=== PATIENT | male | born 2000 | race Caucasian/White ===

== ENCOUNTER 2021-09-07 18:02 | Outpatient (CLI) | payer OTHER, SELFPAY ==
[2021-09-07 19:11] LABS: Influenza A QL RT-PCR Negative (Negative); Influenza B QL RT-PCR Negative (Negative); SARS-CoV-2 RNA PCR Negative (Negative)
== END 2021-09-07 18:03 | disposition home or self-care (01) ==
LOC: CHSLAB 18:06
PROVIDERS: PCP Internal Medicine; Visit Provider Internal Medicine
DX: J06.9 Acute upper respiratory infection, unspecified (principal); Z20.822 Contact with and (suspected) exposure to COVID-19
CPT/HCPCS: 87502; C9803; U0003; U0005

== ENCOUNTER 2022-02-15 18:30 | Emergency (ER) | payer OTHER, SELFPAY ==
[2022-02-15 19:00] VITALS: BP 153/70; PULSE 90; RESP 24; O2SAT 100
--- NOTE | 2022-02-15 19:08 | ED.ANXIETY ---
HPI - Anxiety General Chief Complaint: Cardiac Arrest/CPR Stated Complaint: chest pain Time Seen by Provider: 02/15/22 19:10 Source: patient and RN notes reviewed Mode of arrival: ambulatory Limitations: no limitations History of Present Illness HPI narrative: patient states that he is having chest pressure for the last 2 hours intermittently 5/10. No diaphoresis no nausea vomiting no radiation no dyspnea. He got into the room having absolutely no chest pain and then after the nurse left the room he began having chest pain again and feeling numb and tingly all over. Said the pain goes down all over his entire body. complaint: anxiety and heart racing Onset (ago): hour(s) (2) Symptoms: chest pain, palpitations and extremity numbness/tingling Severity: moderate Quality: intermittent and improving (gone now) Place: home Provoking factors: none known Relieving factors: nothing Exacerbating factors: nothing Associated symptoms: chest pain and palpitations Related Data Allergies Allergy/AdvReac Type Severity Reaction Status Date / Time amoxicillin Allergy Mild Unknown Verified 02/15/22 20:34 Review of Systems Review of Systems: All systems reviewed & are unremarkable except as noted in HPI and below Constitutional: Constitutional: Denies chills and Denies fever(s) ENT: Denies dizziness Respiratory: Respiratory: Denies dyspnea Gastrointestinal: Gastrointestinal: Denies nausea and Denies vomiting PMFSH Social History Social History (Updated 02/16/22 @ 06:55 by Akil Starks MD) Smoking status: Never smoker Exam Const: General: healthy appearing, no acute distress and alert; No diaphoretic Nutritional Appearance: well nourished Orientation/consciousness: patient oriented x3 Limitations: no limitations HENMT: Head: normal to inspection Ears: external ears normal General nose exam: Normal external nose present Face and sinus: normal facial exam Mouth: Yes moist mucous membranes Eyes: Conjunctivae: conjunctivae normal Pupils: Equal, round and reactive pupils present EOM: EOMs intact bilaterally Neck: Neck: normal visual inspection Resp: Effort & Inspection: normal respiratory effort Auscultation: clear to auscultation bilaterally Cardio: Rate: regular rate Rhythm: regular rhythm Heart sounds: no murmurs GI: GI Palp: Yes Soft to palpation and No Tenderness to palpation present (GI) Auscultation: normal bowel sounds Back/Spine/Pelvis: Cervical Spine: cervical ROM normal Thoracic/Lumbar Spine: thoraco-lumbar ROM normal Skin: General skin exam: normal color Rashes: no rashes Neuro: General: patient oriented x3, moves all extremities, no focal motor deficits and CN's II-XI intact bilaterally Speech: normal speech Gait exam (Neuro): Normal gait present Extrem: General: normal to inspection and no clubbing, cyanosis or edema Psych: Mental Status: mental status grossly normal Affect: normal affect Attitude: cooperative Course Vital Signs Vital signs: Vital Signs Pulse Rate 90 02/15/22 19:00 Respiratory Rate 24 H 02/15/22 19:00 Blood Pressure 153/70 H 02/15/22 19:00 Pulse Oximetry 100 02/15/22 19:00 Oxygen Delivery Room Air 02/15/22 19:00 Pulse Rate 81 02/15/22 20:55 Respiratory Rate 16 02/15/22 20:55 Blood Pressure 112/80 02/15/22 20:55 Pulse Oximetry 97 02/15/22 20:55 Oxygen Delivery Room Air 02/15/22 20:55 MDM - Anxiety MDM Narrative Medical decision making narrative: I discussed results with mom who is a nurse. This could be some components of anxiety causing the palpitations or palpitations from the junctional rhythm. There is no evidence of any acute abnormality except for slightly decreased potassium which she will be on replacement for 10 days. He is encouraged to see a lobbyist for the junctional rhythm for further evaluation. Differential Diagnosis Differential diagnosis: Likely acute anxiety Lab Data Attestation: I reviewed the
--- NOTE | 2022-02-15 19:10 | ECG_ITS ---
Measurements Intervals [place] Rate: 97 P: -87 MN: 120 QRS: 59 QRSD: 114 T: 18 QT: 360 QTc: 458 Interpretive Statements NORMAL SINUS RHYTHM MODERATE INTRAVENTRICULAR CONDUCTION DELAY [110+ ms QRS DURATION] NO PRIOR TRACING Electronically Signed On 02-15-2022 22:08:39 CDT by Cynthia Puri M.D.
[2022-02-15 19:42] LABS: Basophils Absolute Auto 0.07 K/mm3 (0.00-0.10); Basophils Percent Auto 1.3 % (0.0-1.0); Eosinophils Absolute Auto 0.27 K/mm3 (0.02-0.50); Eosinophils Percent Auto 4.8 % (1.0-6.0); Hematocrit 46.4 % (40.0-54.0); Hemoglobin 16.2 g/dL (14.0-18.0); Immature Granulocyte Absolute 0.03 K/mm3 (0.00-0.00); Immature Granulocyte Percent A 0.5 % (0.0-0.0); Lymphocytes Absolute Auto 1.61 K/mm3 (1.10-4.50); Lymphocytes Percent Auto 28.8 % (18.0-42.0); Mean Corpuscular HGB Conc 34.9 g/dL (32.0-36.0); Mean Corpuscular Hemoglobin 30.5 pg (27.0-31.0); Mean Corpuscular Volume 87.2 fL (78.0-102.0); Mean Platelet Volume 10.1 fl (8.7-11.0); Monocytes Absolute Auto 0.48 K/mm3 (0.10-0.90); Monocytes Percent Auto 8.6 % (2.0-11.0); Neutrophils Absolute Auto 3.1 K/mm3 (1.7-7.2); Platelet Count Result 275 K/mm3 (150-420); Red Blood Count 5.32 M/mm3 (4.70-6.10); Red Cell Distribution Width 12.4 % (11.6-14.4); White Blood Count 5.6 K/mm3 (4.8-10.8)
[2022-02-15 20:11] LABS: Amphetamine Screen Urine Negative (Negative); Barbiturate Screen Urine Negative (Negative); Benzodiazepines Screen Urine Negative (Negative); Cannabinoid Screen Urine Negative (Negative); Cocaine Screen Urine Negative (Negative); Methadone Screen Urine Negative (Negative); Opiate Screen Urine Negative (Negative); Phencyclidine Screen Urine Negative (Negative)
[2022-02-15 20:15] LABS: Alanine Aminotransferase 38 U/L (16-63); Albumin Level 4.4 g/dL (3.4-5.0); Alkaline Phosphatase 98 U/L (46-116); Anion Gap 12 mmol/L (8-16); Aspartate Amino Transferase 21 U/L (15-37); Bilirubin,Total 1.3 mg/dL (0.00-1.00); Blood Urea Nitrogen 17 mg/dL (7-18); Calcium 9.7 mg/dL (8.5-10.1); Carbon Dioxide 22 mmol/L (21-32); Chloride 103 mmol/L (98-108); Estimated Glomerular Filt Rate > 60; Glucose 104 mg/dL (70-99); Osmolality Calculated 285 mOsm/kg (285-295); Potassium 3.4 mmol/L (3.5-5.1); Sodium 137 mmol/L (136-145)
[2022-02-15 20:16] LABS: Magnesium 2.1 mg/dL (1.8-2.4)
[2022-02-15 20:16] LABS: Thyroid Stimulating Hormone 3.19 uIU/mL (0.36-3.74); Troponin I 4.9 ng/L (0.00-60.4)
[2022-02-15 20:55] VITALS: BP 112/80; PULSE 81; RESP 16; O2SAT 97
== END 2022-02-15 20:50 | disposition home or self-care (01) ==
PROVIDERS: Emergency Provider Emergency Medicine; PCP Internal Medicine
DX: I49.9 Cardiac arrhythmia, unspecified (principal); E87.6 Hypokalemia
CPT/HCPCS: 36415; 80053; 80307; 83735; 84443; 84484; 85025; 93005; 99284

== ENCOUNTER 2022-02-17 06:05 | Emergency (ER) | payer OTHER, SELFPAY ==
[2022-02-17] VITALS (33 sets, daily range): BP systolic 126–174; BP diastolic 60–92; PULSE 60–128; RESP 8–28; TEMP 36.7; O2SAT 97–100
--- NOTE | ~2022-02-17 | CT_ITS ---
EXAMINATION: CTA chest PE protocol DATE: 02/17/2022 08:13 INDICATION: Shortness of breath. Chest pain. TECHNIQUE: Computed tomography angiography (CTA) of the chest was performed with 100 mL Omnipaque-350 intravenous contrast timed to evaluate the pulmonary arteries. Coronal maximum intensity projection 3D-reconstructions were created by the technologist. Automated exposure control and iterative reconst ruction technique were employed. The dose-length product was 509.54 mGy-cm. COMPARISON: None. FINDINGS: There is mild atelectasis in left lower lobe. There is a 4 mm nodule left lower lobe, likel y benign. No pleural effusion. The heart size is normal. No pericardial effusion. There are gallstone s in the gallbladder, which is normal in size. There is no pulmonary embolus. The bones are unremarka ble. IMPRESSION: 1. No pulmonary embolus. 2. Cholelithiasis. No evidence of acute cholecystitis. Reviewed, dictated and finalized at location A.
--- NOTE | ~2022-02-17 | XR_ITS ---
EXAMINATION: XR chest 1V portable DATE: 02/17/2022 06:42 INDICATION: Chest pain. TECHNIQUE: A single frontal view of the chest was obtained on 2 radiographs. COMPARISON: None. FINDINGS: The chest demonstrates clear lungs without pneumonia, pleural effusion, or pneumothorax. Th e heart size is normal. IMPRESSION: 1. No acute cardiopulmonary disease. Reviewed, dictated and finalized at location A.
--- NOTE | 2022-02-17 06:09 | ECG_ITS ---
Measurements Intervals [place] Rate: 97 P: -84 CO: 96 QRS: 62 QRSD: 114 T: 42 QT: 362 QTc: 461 Interpretive Statements SINUS RHYTHM WITH OCCASIONAL VENTRICULAR PREMATURE COMPLEXES INCOMPLETE RIGHT BUNDLE BRANCH BLOCK [90+ ms QRS DURATION, TERMINAL R IN V1/V2, 40+ ms S IN I/aVL/V4/V5/V6] ABNORMAL RHYTHM ECG COMPARED TO ECG 02/15/2022 19:20:57 NO SIGNIFICANT DIFFERENCE Electronically Signed On 02-17-2022 14:24:16 CDT by Rogelio Melgar M.D.
--- NOTE | 2022-02-17 06:16 | ED.CHESTPAIN ---
HPI - Chest Pain General Chief Complaint: Chest Pain Stated Complaint: chest pain, SOB Time Seen by Provider: 02/17/22 06:16 Source: patient and family Mode of arrival: ambulatory History of Present Illness HPI narrative: 21 old male presents to the ER with a 1.5 hour history acute onset -- anterior chest pain. Pain woke him from sleep. No radiation of the pain. No nausea/ vomiting. -- shortness of breath -- numbness and tingling of his nallely oral region and his fingertips. He days similar symptoms and noted hypokalemia and junctional rhythm. Patient was diagnosed anxiety discharged home. The patient followed up with his primary care physician ordered a workup for Phaechromocytoma and is in the process of getting a 24 hour urine. MD complaint: chest pain Onset (ago): minute(s) ( started 90 minutes ago) Timing of current episode: constant Prior episodes: Yes Onset: during rest Pain location: substernal Pain radiation: none Severity: moderate Quality: aching Relieving factors: nothing Exacerbating factors: nothing Treatment prior to arrival: none Risk Factors Coronary artery disease risk factors: none Thoracic aortic dissection risk factors: none Related Data Home Medications Medication Instructions Recorded Confirmed escitalopram oxalate 10 mg tablet 10 mg PO DAILY 02/17/22 02/17/22 (Lexapro) Allergies Allergy/AdvReac Type Severity Reaction Status Date / Time amoxicillin Allergy Mild Unknown Verified 02/15/22 20:34 Review of Systems Review of Systems: All systems reviewed & are unremarkable except as noted in HPI and below Constitutional: Constitutional: Reports as per HPI and Reports no additional constitutional complaints Eyes: Eyes: Reports as per HPI and Reports no additional eye complaints ENT: Reports system reviewed and no additional complaints, except as documented Cardiovascular: Cardiovascular: Reports as per HPI and Reports no additional cardiovascular complaints Respiratory: Respiratory: Reports as per HPI and Reports no additional respiratory complaints Gastrointestinal: Gastrointestinal: Reports as per HPI and Reports no additional gastrointestinal complaints Genitourinary: Genitourinary: Reports no additional male genitourinary complaints and Reports as per HPI Musculoskeletal: Musculoskeletal: Reports no additional musculoskeletal complaints and Reports as per HPI Integumentary/Breasts: Skin/Breast: Reports system reviewed and no additional complaints, except as docu and Reports as per HPI Neurologic: Reports system reviewed and no additional complaints, except as documented and Reports as per HPI Psychiatric: Psychiatric: Reports no additional psychiatric complaints and Reports as per HPI Endocrine: Endocrine: Reports no additional endocrine complaints and Reports as per HPI Hematologic/Lymphatic: Hematologic/Lymphatic: Reports no additional hematologic/lymphatic complaints and Reports as per HPI Allergic/Immunologic: Allergic/Immunologic: Reports no additional allergic/immunologic complaints and Reports as per HPI [facility] Family History Family History (Updated 02/17/22 @ 06:52 by Deondre Hurt MD) Father Family history of PSVT Other Trupti-Danlos disease Social History Social History Smoking status: Never smoker Exam Const: General: healthy appearing and no acute distress Orientation/consciousness: patient oriented x3 Limitations: no limitations Other: hypertensive on presentation with a blood pressure of 174/92 which has decreased to 146/83 HENMT: Head: normal to inspection Ears: external ears normal General nose exam: Normal external nose present Eyes: Conjunctivae: conjunctivae normal Pupils: Equal, round and reactive pupils present Direct Ophthalmoscopy: no photophobia Neck: Neck: normal visual inspection Chest: Chest palpation & inspection: normal inspection of the chest R
[2022-02-17 06:44] LABS: Basophils Absolute Auto 0.11 K/mm3 (0.00-0.10); Basophils Percent Auto 1.5 % (0.0-1.0); Eosinophils Absolute Auto 0.27 K/mm3 (0.02-0.50); Eosinophils Percent Auto 3.8 % (1.0-6.0); Hemoglobin 15.3 g/dL (14.0-18.0); Immature Granulocyte Absolute 0.02 K/mm3 (0.00-0.00); Immature Granulocyte Percent A 0.3 % (0.0-0.0); Lymphocytes Absolute Auto 2.29 K/mm3 (1.10-4.50); Lymphocytes Percent Auto 31.8 % (18.0-42.0); Mean Corpuscular HGB Conc 35.6 g/dL (32.0-36.0); Mean Corpuscular Volume 87.2 fL (78.0-102.0); Monocytes Absolute Auto 0.58 K/mm3 (0.10-0.90); Monocytes Percent Auto 8.1 % (2.0-11.0); Neutrophils Absolute Auto 3.9 K/mm3 (1.7-7.2); Neutrophils Percent Auto 54.5 % (50.0-70.0); Platelet Count Result 265 K/mm3 (150-420); Red Blood Count 4.93 M/mm3 (4.70-6.10); Red Cell Distribution Width 12.3 % (11.6-14.4); White Blood Count 7.2 K/mm3 (4.8-10.8)
[2022-02-17 06:55] LABS: Partial Thromboplastin Time 26.7 SEC (23.90-30.70); Prothrombin Time 10.5 Seconds (9.50-12.10)
[2022-02-17 06:59] LABS: Lactic Acid Reflex 3.5 mmol/L (0.4-2.0)
[2022-02-17 07:08] LABS: Alanine Aminotransferase 25 U/L (16-63); Albumin Level 4.2 g/dL (3.4-5.0); Alkaline Phosphatase 96 U/L (46-116); Anion Gap 17 mmol/L (8-16); Aspartate Amino Transferase 14 U/L (15-37); Blood Urea Nitrogen 17 mg/dL (7-18); Calcium 9.5 mg/dL (8.5-10.1); Carbon Dioxide 19 mmol/L (21-32); Chloride 103 mmol/L (98-108); Estimated CRCL calculation 101 ml/min; Estimated Glomerular Filt Rate > 60; Glucose 110 mg/dL (70-99); Magnesium 1.9 mg/dL (1.8-2.4); NT Pro B Type Natriuretic Pept 16 pg/mL (0-125); Osmolality Calculated 290 mOsm/kg (285-295); Potassium 2.9 mmol/L (3.5-5.1); Sodium 139 mmol/L (136-145); Thyroid Stimulating Hormone 2.23 uIU/mL (0.36-3.74); Total Protein 7.7 g/dL (6.4-8.2); Troponin I 4.4 ng/L (0.00-60.4)
[2022-02-17 07:17] LABS: D Dimer 0.66 mg/L (0.19-0.50)
--- NOTE | 2022-02-17 07:27 | PC.NURSE ---
0726 urine taken to lab
--- NOTE | 2022-02-17 07:32 | ED.GENADULT ---
HPI - General Adult General Chief complaint: Chest Pain Stated complaint: chest pain, SOB Time Seen by Provider: 02/17/22 06:16 Source: patient and family Mode of arrival: ambulatory History of Present Illness HPI narrative: I assumed care for Steve at [address] Hurt. Please see his note for further details. Further history revealed that this started after he drank a C4 energy drink on an empty stomach after being awake for 4 hours. Related Data Home Medications Medication Instructions Recorded Confirmed escitalopram oxalate 10 mg tablet 10 mg PO DAILY 02/17/22 02/17/22 (Lexapro) Allergies Allergy/AdvReac Type Severity Reaction Status Date / Time amoxicillin Allergy Mild Unknown Verified 02/17/22 07:28 Review of Systems Review of Systems: Negative except as mentioned in the HPI and Dr. Valdez note. [facility] Family History Family History (Updated 02/17/22 @ 06:52 by Deondre Hurt MD) Father Family history of PSVT Other Trupti-Danlos disease Social History Social History Smoking status: Never smoker Exam Const: General: healthy appearing, no acute distress and alert; No confusion Nutritional Appearance: well nourished and thin HENMT: Head: normal to inspection Ears: external ears normal General nose exam: Normal external nose present Face and sinus: normal facial exam Eyes: Conjunctivae: conjunctivae normal Pupils: Equal, round and reactive pupils present Chest: Chest palpation & inspection: normal inspection of the chest Other: No TTP Resp: Effort & Inspection: normal respiratory effort, not labored and no retractions Auscultation: clear to auscultation bilaterally Cardio: Rate: regular rate Rhythm: regular rhythm GI: Inspection: non-distended GI Palp: Yes Soft to palpation and No Tenderness to palpation present (GI) : General: Yes bladder normal to palpation Skin: General skin exam: normal color Neuro: General: patient oriented x3 and moves all extremities Extrem: General: normal to inspection Psych: Mental Status: mental status grossly normal Course Course Emergency Course: Shortly after assuming care Steve fell asleep and he desaturated into the 50's. Upon awakening his vitals returned to normal. After administration of ativan his symptoms drastically improved. EXAMINATION: CTA chest PE protocol DATE: 02/17/2022 08:13 INDICATION: Shortness of breath. Chest pain. TECHNIQUE: Computed tomography angiography (CTA) of the chest was performed with 100 mL Omnipaque-350 intravenous contrast timed to evaluate the pulmonary arteries. Coronal maximum intensity projection 3D-reconstructions were created by the technologist. Automated exposure control and iterative reconstruction technique were employed. The dose-length product was 509.54 mGy-cm. COMPARISON: None. FINDINGS: There is mild atelectasis in left lower lobe. There is a 4 mm nodule left lower lobe, likely benign. No pleural effusion. The heart size is normal. No pericardial effusion. There are gallstones in the gallbladder, which is normal in size. There is no pulmonary embolus. The bones are unremarkable. IMPRESSION: 1. No pulmonary embolus. 2. Cholelithiasis. No evidence of acute cholecystitis. After administration of potassium his EKG showed normal sinus rhythm with a rate of 66 and sinus arrhythmia but nos ST elevation, depression or ectopy He was asymptomatic at the time of discharge Vital Signs Vital signs: Vital Signs Temperature 98.1 F 02/17/22 06:05 Pulse Rate 98 02/17/22 06:05 Respiratory Rate 22 H 02/17/22 06:05 Blood Pressure 174/92 H 02/17/22 06:05 Pulse Oximetry 100 02/17/22 06:05 Oxygen Delivery Room Air 02/17/22 06:05 Temperature 98.1 F 02/17/22 06:05 Pulse Rate 69 02/17/22 10:01 Respiratory Rate 8 L 02/17/22 09:46 Blood Pressure 132/71 02/17/22 10:01 Pulse Oximetry 98
[2022-02-17 07:38] LABS: Amphetamine Screen Urine Negative (Negative); Barbiturate Screen Urine Negative (Negative); Benzodiazepines Screen Urine Negative (Negative); Cannabinoid Screen Urine Negative (Negative); Cocaine Screen Urine Negative (Negative); Methadone Screen Urine Negative (Negative); Opiate Screen Urine Negative (Negative); Phencyclidine Screen Urine Negative (Negative)
[2022-02-17 07:44] LABS: Add Urine Microscopic? NO; Appearance Urine Clear (Clear); Bilirubin Urine Negative (Negative); Blood Urine Negative (Negative); Color Urine Light Yellow (Yellow); Glucose Urine UA Negative (Negative); Ketones Urine Negative (Negative); Leukocyte Esterase Ur Negative (Negative); Nitrate Urine Negative (Negative); Protein Urine Negative (Negative); Specific Grav Ur 1.025 (1.010-1.020); Urobilinogen Urine 0.2 mg/dL (0.2-1.0); pH Urine 6.5 (5.0-8.0)
[2022-02-17] MEDS: LORazepam INJ (*CRX) 2 MG/ML VIAL 0.5 MG IV PUSH (07:45)
[2022-02-17] MEDS: SODIUM CHLORIDE 0.9% IV 1,000 ML 999 ML IV CONT (07:45)
[2022-02-17] MEDS: POTASSIUM CHLORIDE 20 MEQ TABLET 40 MEQ PO (07:46)
[2022-02-17] MEDS: KCL 20 MEQ/SW 100 ML 100 ML 50 MEQ IVPB (07:46)
--- NOTE | 2022-02-17 09:20 | ECG_ITS ---
Measurements Intervals [place] Rate: 66 P: 39 DE: 103 QRS: 60 QRSD: 109 T: 48 QT: 396 QTc: 418 Interpretive Statements SINUS RHYTHM WITH MARKED SINUS ARRHYTHMIA WITH SHORT DE INTERVAL EARLY REPOLARIZATION WITHIN NORMAL LIMITS COMPARED TO ECG 02/17/2022 06:15:53 SINUS ARRHYTHMIA NOW PRESENT Electronically Signed On 02-17-2022 14:25:12 CDT by Rogelio Melgar M.D.
[2022-02-17 09:40] LABS: Reflex Lactic Acid Yes or No Add Lactic
== END 2022-02-17 10:18 | disposition home or self-care (01) ==
PROVIDERS: Internal Medicine Critical Care Medicine; Emergency Provider Family Medicine; PCP Internal Medicine
DX: I47.1 Supraventricular tachycardia (principal); R07.9 Chest pain, unspecified; F41.9 Anxiety disorder, unspecified
CPT/HCPCS: 36415; 71045; 71275; 80053; 80307; 81003; 83605; 83735; 83880; 84443; 84484; 85025; 85380; 85610; 85730; 93005; 96365; 96366; 96375; 99285; A9270; J2060; J3480; J7030; Q9967

== ENCOUNTER 2022-02-17 18:39 | Outpatient (NON) | payer OTHER, SELFPAY ==
[2022-02-23 14:07] LABS: Metanephrine, Urine 176; Normetanephrine, Urine 366
[2022-02-23 14:08] LABS: Metanephrine, Total Urine 542
== END 2022-02-17 18:40 | disposition home or self-care (01) ==
LOC: CHSLAB 18:47
PROVIDERS: PCP Internal Medicine; Visit Provider Internal Medicine
DX: R23.2 Flushing (principal); I47.1 Supraventricular tachycardia
CPT/HCPCS: 83835

== ENCOUNTER 2022-02-20 12:26 | Outpatient (CLI) | payer OTHER, SELFPAY ==
--- NOTE | 2022-02-20 13:22 | ECHO_ITS ---
Patient Info Name: Steve Mcconnell Age: 21 years : 2000 Gender: Male Ht: 72 in Wt: 180 lbs BSA: 2.04 m2 HR: 89 bpm BP: 130 / 85 mmHg Technical Quality: Good Exam Date: 02/20/2022 12:32 PM Exam Location: [facility] Patient Status: Outpatient Admit Date: 02/20/2022 Staff Ordering Physician: Mick Castellanos MD Warehouse Operations Manager: Gerald Salazar RDCS, RT Attending Provider: Mick Castellanos MD Exam Type: CA echo doppler color flow Study Info Indications I47.9 - Paroxysmal tachycardia, unspecified Complete two-dimensional, color flow and Doppler transthoracic echocardiogram is performed. Strain analysis performed. Summary 1. Complete two-dimensional, color flow and Doppler transthoracic echocardiogram is performed. 2. Left ventricular chamber dimension is normal. 3. Left ventricular systolic function is normal, estimated at 60-65%. 4. The left ventricular diastolic function is grade I diastolic dysfunction. 5. E/e' 4 is not elevated. 6. Global longitudinal strain is normal at -17.2%. 7. There is trace tricuspid valve regurgitation. Left Ventricle E/e' 4 is not elevated. Global longitudinal strain is normal at -17.2%. Left ventricular chamber dimension is normal. Left ventricular systolic function is normal, estimated at 60-65%. The left ventricular diastolic function is grade I diastolic dysfunction. Right Ventricle Right ventricular systolic function is normal and with normal TAPSE 2.1 cm. Right ventricular chamber dimension is normal. Left Atria Left atrial chamber dimension is normal. Right Atria Right atrial chamber dimension is normal. Aortic Valve The aortic valve is trileaflet. There is no aortic valve stenosis. There is no aortic valve regurgitation. Pulmonic Valve There is no pulmonic regurgitation. Mitral Valve There is no mitral valve stenosis. There is no mitral valve regurgitation. Tricuspid Valve RVSP is not calculated due to an inadequate TR jet. There is trace tricuspid valve regurgitation. Pericardium/Pleural There is no pericardial effusion. Inferior Vena Cava Normal inferior vena cava with >50% collapse upon inspiration consistent with normal right atrial pressure, 5 mmHg. Aorta The aortic root size at the sinus of Valsalva is normal. Left Ventricular Outflow Tract Name Value Normal LVOT 2D LVOT Diameter 2.1 cm LVOT Doppler LVOT Peak Velocity 82 cm/s LVOT Peak Gradient 3 mmHg LVOT Mean Gradient 1 mmHg LVOT VTI 14 cm LVOT VTI/AV VTI Ratio 0.6 LVOT Stroke Volume 47 ml Mitral Valve Name Value Normal MV Doppler MV Decel [place] 322 cm/s2 MV PHT 55 ms MV Area (
--- NOTE | 2022-03-28 10:27 | WPDHOLTEREM ---
Holter/Event Monitor Holter/Event Monitor Date of procedure: 02/20/22 Holter/Event Procedure: Event Monitor Indications: Palpitations Conclusion: 1. 18 days event monitor between 02/20/22-03/25/22. There are 51 available transmissions for analysis. 2. Underlying rhythm is sinus rhythm. HR range 50-129; average HR 68 bpm. 3. There are occasional premature supraventricular complexes with total burden of <1%. No supraventricular tachycardia. 4. There are occasional premature ventricular complexes with total burden of <1%. No ventricular tachycardia. 5. No significant pauses greater than 2 seconds. 6. Patient reports symptoms of heart racing, chest pain, shortness of breath, and symptoms other than listed which demonstrate sinus rhythm, HR range 91-96 bpm with one PAC.
== END 2022-02-20 12:27 | disposition home or self-care (01) ==
LOC: CHSIMG 12:29
PROVIDERS: PCP Internal Medicine; Visit Provider Internal Medicine
DX: I47.1 Supraventricular tachycardia (principal)
CPT/HCPCS: 93306

== ENCOUNTER 2022-03-01 15:50 | Outpatient (CLI) | payer OTHER, SELFPAY ==
[2022-03-01 16:26] LABS: Alanine Aminotransferase 32 U/L (16-63); Albumin Level 4.1 g/dL (3.4-5.0); Alkaline Phosphatase 97 U/L (46-116); Anion Gap 5 mmol/L (8-16); Aspartate Amino Transferase 19 U/L (15-37); Bilirubin,Total 1.2 mg/dL (0.00-1.00); Blood Urea Nitrogen 16 mg/dL (7-18); Carbon Dioxide 30 mmol/L (21-32); Chloride 103 mmol/L (98-108); Estimated Glomerular Filt Rate > 60; Osmolality Calculated 287 mOsm/kg (285-295); Potassium 4.1 mmol/L (3.5-5.1); Sodium 138 mmol/L (136-145); Total Protein 7.1 g/dL (6.4-8.2)
[2022-03-01 16:44] LABS: Glucose 93 mg/dL (70-99)
== END 2022-03-01 15:51 | disposition home or self-care (01) ==
LOC: CHSLAB 15:53
PROVIDERS: PCP Internal Medicine; Visit Provider Internal Medicine
DX: E87.6 Hypokalemia (principal)
CPT/HCPCS: 36415; 80053; 83735

== ENCOUNTER 2025-01-02 20:19 | Emergency (ER) | payer OTHER, SELFPAY ==
--- NOTE | ~2025-01-02 | XR_ITS ---
XR hand LT min 3V Ordering provider: Jose Manuel Montesinos MD History: . CRUSHING INJURY TO LEFT HAND. PAIN DISTAL LEFT 3RD DIGIT. . Comparison: May 15, 2018 FINDINGS: BONES: Fracture of the midshaft of the distal phalanx of the left middle finger JOINT SPACES: Well maintained. SOFT TISSUES: Unremarkable. IMPRESSION: Fracture in the midshaft of the distal phalanx of the left middle finger. No displacement seen. Reviewed, dictated and finalized at location A. IMPRESSION: Fracture in the midshaft of the distal phalanx of the left middle finger. No di splacement seen.
[2025-01-02 20:20] VITALS: BP 138/96; PULSE 95; RESP 18; TEMP 36.4; O2SAT 97
--- NOTE | 2025-01-02 20:30 | ED_ITS ---
HPI - Extremity Injury (Upper) General Chief Complaint: Extremity Injury, Upper Stated Complaint: laceration Time Seen by Provider: 01/02/25 20:23 Source: patient Mode of arrival: ambulatory Limitations: no limitations History of Present Illness HPI narrative: patient is a 24-year-old male with a heavy object landing on his left middle finger prior to arrival. This is a crush injury. There was a nail avulsion from the base. Pain in the distal tip of the middle left finger. complaint: injury to: left, hand and finger ( Middle) Onset (ago): hour(s) ( 1) Other Extremity Injury: Left: fingers ( middle) Other injuries: none Place: outdoors Severity: moderate Severity scale (1-10): 5 Relieving factors: rest Exacerbating factors: movement of extremity Context: direct blow, crush and injury Associated symptoms: denies other symptoms Treatments prior to arrival: other ( none) Related Data Home Medications ?Medication ?Instructions ?Recorded ?Confirmed ?Last Taken ?Type escitalopram oxalate 10 mg tablet 10 mg PO DAILY 02/17/22 02/17/22 Unknown Hi story (Lexapro) Allergies Allergy/AdvReac Type Severity Reaction Status Date / Time amoxicillin Allergy Mild Unknown Verified 02/17/22 07:28 Review of Systems Review of Systems: All systems reviewed & are unremarkable except as noted in HPI and below Constitutional: Constitutional: Reports no additional constitutional complaints Eyes: Eyes: Reports no additional eye complaints ENT: Reports system reviewed and no additional complaints, except as documented Cardiovascular: Cardiovascular: Reports no additional cardiovascular complaints Respiratory: Respiratory: Reports no additional respiratory complaints Gastrointestinal: Gastrointestinal: Reports no additional gastrointestinal complaints Genitourinary: Genitourinary: Reports no additional male genitourinary complaints Musculoskeletal: Musculoskeletal: Reports no additional musculoskeletal complaints Integumentary/Breasts: Skin/Breast: Reports system reviewed and no additional complaints, except as docu Neurologic: Reports system reviewed and no additional complaints, except as documented Psychiatric: Psychiatric: Reports no additional psychiatric complaints Endocrine: Endocrine: Reports no additional endocrine complaints Hematologic/Lymphatic: Hematologic/Lymphatic: Reports no additional hematologic/lymphatic complaints Allergic/Immunologic: Allergic/Immunologic: Reports no additional allergic/immunologic complaints PMFSH Family History Family History Father Family history of PSVT Other Trupti-Danlos disease Social History Social History Smoking status: Never smoker Exam Const: General: healthy appearing Nutritional Appearance: well nourished Orientation/consciousness: patient oriented x3 Limitations: no limitations HENMT: Head: normal to inspection Ears: external ears normal Face/Nose/Sinus: Normal external nose present Eyes: Conjunctivae: conjunctivae normal Pupils: Equal, round and reactive pupils present EOM: EOMs intact bilaterally Neck: Neck: normal visual inspection Chest: Chest palpation & inspection: normal inspection of the chest Resp: Effort & Inspection: normal respiratory effort and not labored Auscultation: clear to auscultation bilaterally and no crackles Cardio: Rate: regular rate Rhythm: regular rhythm Heart sounds: no murmurs GI: Inspection: non-distended GI Palp: Yes Soft to palpation and No Tenderness to palpation present (GI) Auscultation: normal bowel sounds : General: Yes bladder normal to palpation Back/Spine/Pelvis: Back: no CVA tenderness Skin: General skin exam: normal color Rashes: no rashes Wounds: wounds noted Other: left hand middle finger distal tip has an avulsed base nail with small laceration of the nail skin base Neuro: General: patient oriented x3 Cranial nerves: Yes Nystagmus not present Speech: normal speech Gait exam (Neuro): Normal gait present Extrem: General: normal to inspection Psych: Mental Status: mental status grossly normal Affect: normal affect Attitude: cooperative Course Vital Signs Vital signs: Vital Signs Temperature 36.4 C 01/02/25 20:20 Pulse Rate 95 01/02/25 20:20 Respiratory Rate 18 01/02/25 20:20 Blood Pressure 138/96 H 01/02/25 20:20 Pulse Oximetry 97 01/02/25 20:20 Oxygen Delivery Room Air 01/02/25 20:20 Temperature 36.4 C 01/02/25 20:20 Pulse Rate 95 01/02/25 20:20 Respiratory Rate 18 01/02/25 20:20 Blood Pressure 138/96 H 01/02/25 20:20 Pulse Oximetry 97 01/02/25 20:20 Oxygen Delivery Room Air 01/02/25 20:20 Procedures Other Procedure Procedure 1: Other Procedure: left hand middle finger distal tip replacement of the base of the nail; 1% lidocaine having 2 cc used; area cleaned with chlorhexidine; patient tolerated procedure well; no side effects or problems or complications; patient did get slightly pale but did not pass out MDM - Extremity Injury (Upper) MDM Narrative Medical decision making narrative: patient is a 24-year-old male with a left hand middle finger distal tip crush injury and laceration. We will replace the base of the nail into the space and bandage up the distal tip for the fracture. Imaging Data Attestation: I personally reviewed and interpreted this imaging study as follows: Radiologist's impression: X-ray left hand shows IMPRESSION: Fracture in the midshaft of the distal phalanx of the left middle finger. No displacement seen. Discharge Plan Discharge Clinical Impression: Finger laceration Qualifiers: Encounter type: initial encounter Finger: middle finger Damage to nail status: with damage Foreign body presence: without foreign body Laterality: left Qualified Code(s): S61.313A - Laceration without foreign body of left middle finger with damage to nail, initial encounter Finger fracture, left Qualifiers: Encounter type: initial encounter Finger: middle finger Fracture type: closed Phalanx: distal Fracture alignment: nondisplaced Qualified Code(s): S62.663A - Nondisplaced fracture of distal phalanx of left middle finger, initial encounter for closed fracture Patient Disposition: Home Condition: Stable Instructions: Antibiotic Form, Finger Fracture (ED) Patient Language: Montserratian Prescriptions: New clindamycin HCl [Cleocin HCl] 300 mg capsule 300 mg PO TID 7 Days Qty: 21 0RF No Action potassium chloride [Klor-Con 10] 10 mEq tablet extended release 10 meq PO DAILY Qty: 10 0RF escitalopram oxalate [Lexapro] 10 mg Tablet 10 mg PO DAILY potassium chloride 10 mEq tablet,ER particles/crystals 10 meq PO DAILY Qty: 10 0RF Follow-up/Referrals: Mick Castellanos MD [Primary Care Provider] - Time of Disposition: 21:13
[2025-01-02] MEDS: CLINDAMYCIN HCL 150 MG CAP 300 MG PO (21:23)
[2025-01-02] MEDS: IBUPROFEN 600 MG TABLET PO (21:23)
[2025-01-02 21:38] VITALS: BP 118/70; PULSE 87; RESP 18; O2SAT 99
== END 2025-01-02 21:39 | disposition home or self-care (01) ==
PROVIDERS: Emergency Provider Emergency Medicine; PCP Internal Medicine
DX: S61.313A Laceration without foreign body of left middle finger with damage to nail, initial encounter (principal); S62.663A Nondisplaced fracture of distal phalanx of left middle finger, initial encounter for closed fracture; W22.8XXA Striking against or struck by other objects, initial encounter
CPT/HCPCS: 11730; 29130; 73130; 99284; A9270; J2003